=== PATIENT | male | born 1990 | race Caucasian/White ===

== ENCOUNTER → 2017-06-12 | Emergency (ER) | payer SELFPAY ==
[~2017-06-12] VITALS: Ht 182.9 cm; Wt 65.9 kg
[~2017-06-12] MED LIST: ASPIRIN 325 MG TAB PO ONE; DIPHTH/TET/ACEL PERTUSS (ADULT) 0.5 ML VIAL IM* ONE; HYDROmorphONE 1 MG/ML SYG IV ONE; HYDROmorphONE 1 MG/ML SYG IV STA; HYDROmorphONE 2 MG/ML SYG IV ONE; IOHEXOL 300MG/ML 150 ML BTL ONE; ONDANSETRON 4 MG INJ IV ONE; ONDANSETRON 4 MG INJ IV STA; SOD CHLORIDE 0.9% 100 ML ONE
[2017-06-12 19:29] VITALS: Ht 182.9 cm; Wt 65.9 kg
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
--- NOTE | 2017-06-12 20:38 | RADRPT ---
PROCEDURE: XR Chest AP upright CLINICAL INDICATION: Trauma TECHNIQUE: An AP portable radiograph of the chest was submitted. COMPARISON: None. FINDINGS: Support Hardware: None Cardiovascular: The cardiovascular silhouette appears unremarkable. Lung Albright: The lung albright appear clear with no nodule, alveolar infiltrate, or interstitial promi nence evident. Pleural Spaces: No pneumothorax or pleural effusion is identified. Osseous Structures: The osseous structures appear intact. Soft Tissues: The soft tissues appear unremarkable. IMPRESSION: Unremarkable AP upright chest Physician Neeraj Date Time Electronically viewed and signed by Dameon Aleman Physician on 06/12/2017 20:38 /
--- NOTE | 2017-06-12 21:06 | RADRPT ---
PROCEDURE: CT Brain without contrast. CLINICAL INDICATION: Trauma. Pain. . TECHNIQUE: Serial axial computed tomographic images of the brain was performed on a CT scanner fro m the skull base through the vertex without contrast. Exam CTDlvol = 22 mGy and DLP = 648 mGy-cm. One of the following 3 dose reduction techniques were used: Automated exposure control; adjustment of the mA and/or kV according to patient size; or use of iterative reconstruction technique. COMPARISON: None available. FINDINGS: There is no fracture. The ventricles and sulci are normal in size and configuration. There is no m idline shift. There are no focal parenchymal abnormalities. There is no acute stroke. No acute in tracranial hemorrhage or abnormal extra-axial fluid collection. Visualized paranasal sinuses are c lear. IMPRESSION: 1. No acute post-traumatic abnormality. RPTAT: HMVK .David Cronin MD, Date Time Electronically viewed and signed by .David Cronin MD, MD on 06/12/2017 21:06 .K/
--- NOTE | 2017-06-12 21:12 | RADRPT ---
PROCEDURE: CT CERVICAL SPINE WITHOUT CONTRAST CLINICAL INDICATION: 26-year of age, male. Pain. Trauma. TECHNIQUE: A CT of the cervical spine was performed utilizing thin section axial images from the s kull base through the thoracic inlet. Coronal and sagittal reformatted images were obtained from th e axial source images. Images were reviewed on a high-resolution PACS workstation. The CTDIvol is 22 mGy and the DLP is 646 mGy-cm. One or more of the following dose reduction techniques were used: - Automated exposure control. - Adjustment of the mA and/or kV according to patient size. - Use of iterative reconstruction technique. COMPARISON: None available. FINDINGS: Cervical spine is imaged from the skull base to T3. Alignment: Normal. Vertebrae and Disks: There is an acute fracture of the left lateral mass of C6. There is a nondisplaced fracture of the l eft posterior lateral aspect of the C6 vertebral body that involves the left pedicle. In addition th ere is a vertical fracture of the left pars interarticularis that involves the superior and inferior facets. There is mild step deformity at the left C5-6 and left C6-7 facet joints. Fracture does not involve the transverse foramen. No other acute fractures are identified in the imaged spine. Bone mineral density appears normal. Vertebral body heights are maintained. No suspicious bone lesio ns. There is no significant degenerative change. Extra-vertebral soft tissues: There is posterior soft tissue swelling. Additional comment: Negative for apical pneumothorax. IMPRESSION: Acute fracture of the left C6 vertebral body and left lateral mass involving the superior and inferi or facet joints. Spine consultation is advised. Findings were discussed with Dr. Martínez by Dr. Annalisa Donato on June 12, 2017 at 09:05 p.m. RPTAT: HCTS Physician Radha Date Time Electronically viewed and signed by Physician Radha on 06/12/2017 21:12 CS/
[2017-06-12 23:23] VITALS: RESP 18
[2017-06-12 23:36] VITALS: BP 127/70; PULSE 76; TEMP 98.8
--- NOTE | 2017-06-12 23:57 | RADRPT ---
PROCEDURE: CT angiogram of the neck with contrast. CLINICAL INDICATION: Cervical spine fracture. TECHNIQUE: CT angiogram of the neck was performed on a multi-detector high-resolution CT scanner. Contiguous axial images were obtained after the dynamic injection of 100 cc Omnipaque 350 intraven ous contrast. Coronal and sagittal as well as maximal intensity projection reformations were obtain ed. 3-D post processing was also performed. Images were reviewed on a PACS workstation. One or more of the following dose reduction techniques were used: - Automated exposure control. - Adjustment of the mA and/or kV according to patient size. - Use of iterative reconstruction technique. Exam CTD/vol = 16.43 mGy. Total exam DLP = 494.09 mGy-cm. COMPARISON: None. FINDINGS: The visualized aortic arch and proximal great vessels are within normal limits. Bilateral common ca rotid arteries are normal course and caliber. Bilateral carotid bulbs and bifurcations are within n ormal limits. Bilateral internal and external carotid arteries are of normal course and caliber. T he right vertebral artery is dominant. The left proximal vertebral artery is visualized to the level of C6 in which there is loss of flow. There is reconstitution of the left distal intradural vertebr al artery. 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 No hemodynamically significant carotid stenosis. During measurements of vessel diameter was made in reference to measurements of the distal internal carotid artery diameter. A call report was made to Dr. Martínez at 11:55 p.m. .Emmanuel Morales MD, MD Date Time Electronically viewed and signed by .Emmanuel Morales MD, MD on 06/12/2017 23:57 .T/
== END | disposition short-term general hospital (02) ==
LOC: E/R 19:19
DX: S12.9XXA Fracture of neck, unspecified, initial encounter (principal); S20.212A Contusion of left front wall of thorax, initial encounter; I65.02 Occlusion and stenosis of left vertebral artery; V49.40XA Driver injured in collision with unspecified motor vehicles in traffic accident, initial encounter; Z23 Encounter for immunization
CPT/HCPCS: 70450; 70498; 71010; 72125; 90471; 90715; 96374; 96375; 96376; 99291; J1170; J2405; Q9967